=== PATIENT | male | born 1960 | race African-American/Black ===

== ENCOUNTER 2018-01-14 08:47 | Emergency (ER) | payer MEDICARE ==
[~2018-01-14] VITALS: Ht 167.6 cm; Wt 70.4 kg
[2018-01-14 08:50] VITALS: BP 155/91; PULSE 86; RESP 17; TEMP 98.4; O2SAT 99
[2018-01-14] MEDS ORDERED: METF1000 PO (10:17)
[2018-01-14] MEDS ORDERED: PRAV40TA2 PO (10:17)
--- NOTE | 2018-01-14 10:27 | PD ---
HPI Chief Complaint: Back/ Neck Pain or Injury Time Seen by Provider: 10:12 Travel History International Travel<30 days: No Contact w/Intl Traveler<30days: No Traveled to known affect area: No History of Present Illness HPI Patient 57-year-old male presents emergency department for thoracic back pain without radiation. Patient states been going on for the past few days waxing and waning. Denies any radiculopathy symptoms denies any saddle anesthesia denies any difficulty urinating. Patient states he has had problems with his back in the past and has had some disc problems. He states that he was doing some jerking twisting motions of his back earlier this week and thinks this might have exacerbated it. No chest pain no shortness of breath no abdominal pain. He is a smoker. States symptoms are moderate, waxing and waning, context and associated signs symptoms as above PFSH Past Medical History High Cholesterol: Yes Diabetes: Yes Patient Takes Glucophage: Yes Diminished Hearing: No ?: Not Past Surgical History Surgical History: No Previous Surgery Social History Alcohol Use: Yes (Occasionally) Tobacco Use: Yes (3 cigs daily) Substance Use: No Allergies-Medications (Allergen,Severity, Reaction): Coded Allergies: No Known Allergies (Unverified , 01/14/18) Reported Meds & Prescriptions Reported Meds & Active Scripts Active Ibuprofen 400 Mg Tab 400 Mg PO Q6H PRN 5 Days Reported Pravastatin 40 Mg Tab 40 Mg PO DAILY Metformin (Metformin HCl) 1,000 Mg Tab 1,000 Mg PO DAILY With a meal Review of Systems Except as stated in HPI: all other systems reviewed are Neg Physical Exam Narrative GENERAL: Well-nourished, well-developed patient. SKIN: Focused skin assessment warm/dry. HEAD: Normocephalic. Atraumatic EYES: No scleral icterus. No injection or drainage. NECK: Supple, trachea midline. No JVD or lymphadenopathy. CARDIOVASCULAR: Regular rate and rhythm without murmurs, gallops, or rubs. RESPIRATORY: Breath sounds equal bilaterally. No accessory muscle use. GASTROINTESTINAL: Abdomen soft, non-tender, nondistended. MUSCULOSKELETAL: No cyanosis, or edema. There is some paraspinous midthoracic tenderness. No true midline CT or L-spine tenderness. Pulses motor and sensory intact distally in all 4 extremities, strength is full BACK: Nontender without obvious deformity. No CVA tenderness. Data Data Last Documented VS Vital Signs Date Time Temp Pulse Resp B/P (MAP) Pulse Ox O2 Delivery O2 Flow Rate FiO2 01/14/18 08:50 98.4 86 17 155/91 (112) 99 Orders Orders Chest, Single Ap (01/14/18 ) Spine, Thoracic-Ap/Lat/Sw(3vw) (01/14/18 ) Ibuprofen (Motrin) (01/14/18 10:30) Ed Discharge Order (01/14/18 11:46) MDM Medical Decision Making Medical Screen Exam Complete: Yes Emergency Medical Condition: Yes Differential Diagnosis Strain, sprain, fracture, pathogenic fracture Narrative Course Patient room to the emergency department, appears well in no obvious distress, x -rays are reassuring. Discussed with the patient's symptomatic management he is stable for discharge. Discussed follow-up with the [facility] Diagnosis Primary Impression: Thoracic back pain Referrals: [facility] Patient Instructions: General Instructions, How to Stop Smoking (DC), Musculoskeletal Pain (ED) Med/Other Pt SpecificInfo: Prescription(s) given Scripts Ibuprofen (Ibuprofen) 400 Mg Tab 400 MG PO Q6H Y for PAIN SCALE 1 TO 10 for 5 Days, #20 TAB 0 Refills Prov: Cyrus Haq MD 01/14/18 Disposition: 01 DISCHARGE HOME Condition: Stable Cyrus Haq MD January 14, 2018 10:27
[2018-01-14] MEDS ORDERED: IBUPROFEN 600 MG TAB PO ONE (10:30)
--- NOTE | 2018-01-14 11:08 | RADRPT ---
EXAM DATE/TIME: 01/14/2018 10:41 [facility] COMPARISON: No previous studies available for comparison. INDICATIONS : Chest pain after moving a refrigerator. MEDICAL HISTORY : None. SURGICAL HISTORY : None. ENCOUNTER: Initial ACUITY: 1 day PAIN SCORE: 8/10 LOCATION: Bilateral chest FINDINGS: Single frontal view of the chest demonstrates a normal-sized cardiac silhouette. No effusion, consoli dation, or pneumothorax is visualized. The bones and soft tissues demonstrate no acute abnormality. CONCLUSION: No acute cardiopulmonary abnormality is identified. Brooks Oquendo MD on January 14, 2018 at 11:06 Board Certified Radiologist. This report was verified electronically.
[2018-01-14] MEDS ORDERED: IBUP1TAB5 PO (11:47)
--- NOTE | 2018-01-14 11:49 | RADRPT ---
EXAM DATE/TIME: 01/14/2018 10:43 [facility] COMPARISON: No previous studies available for comparison. INDICATIONS : Mid back pain after moving a refrigerator a. MEDICAL HISTORY : None. SURGICAL HISTORY : None. ENCOUNTER: Initial ACUITY: 1 day PAIN SCORE: 8/10 LOCATION: thoracic spine FINDINGS: There is normal alignment of the thoracic vertebral bodies. Vertebral body height is maintained. No evidence of fracture or subluxation. Pedicles are intact at all levels. The paravertebral reflecti ons are not thickened. CONCLUSION: No evidence of compression deformity or spondylolisthesis. Germán Sales MD on January 14, 2018 at 11:47 Board Certified Radiologist. This report was verified electronically.
== END 2018-01-14 11:58 | disposition home or self-care (01) ==
LOC: NEPD 08:47
DX: M54.6 Pain in thoracic spine (principal); E11.9 Type 2 diabetes mellitus without complications; E78.00 Pure hypercholesterolemia, unspecified; F17.210 Nicotine dependence, cigarettes, uncomplicated; Z79.84 Long term (current) use of oral hypoglycemic drugs
CPT/HCPCS: 71045; 72072; 99283